=== PATIENT | female | born 1950 | race Caucasian/White ===

== ENCOUNTER 2017-05-08 10:51 | Day surgery (SDC) | payer BC ==
[~2017-05-08 10:51] MED LIST: DIPRIVAN VIAL ONE; DYLOJECT INJ ONE; NARCAN INJ ONE; NEOSTIGMINE INJ ONE; NORCURON INJ 10 MG VIAL ONE; QUELICIN (OR ANECTINE) ONE; ROBINUL ONE; SUPRANE IN ONE; VERSED ONE; XYLOCAINE 2 % (PLAIN) ONE; ZOFRAN INJ 4 MG VIAL ONE
[2017-05-08 10:57] VITALS: BMI 29.2
--- NOTE | 2017-05-08 11:32 | DR.GENAD ---
HPI - PCP Primary Care Physician: TREY - HPI Comment HPI Comment: SUDDEN ONSET OF JAMEL UMBILICAL PAIN RADIATING TO RIGHT SIDE. PAIN IN RLQ OF ABDOMEN WELL. NO FEVER. NAUSEA PRESENT BUT NO VOMITING. - Complaint/Symptoms Chief Complaint Doctors Comments: ABDOMINAL PAIN Chief Complaint:: HURTING FROM MY NAVAL TO MY RIGHT SIDE AND NAUSEA - Nurses notes reviewed Nurses Notes Review: Yes - Source History Provided: Patient - Mode of Arrival Mode of Arrival: Ambulatory - Timing Onset of Chief Complaint: 05/08/17 Came on: Suddenly - Duration Duration: Constant Duration: Days - Severity Severity: Moderate PMH - PMH Past Medical History: Yes Past Medical History: COPD, Hypertension Past Surgical History: Yes Surgical History: Hysterectomy - Family History History of Family Medical Conditions: Yes Family Medical History: Cancer, Hypertension - Social History Does patient currently use any type of tobacco product: No Have you used tobacco products in the last 12 months: No Type of Tobacco Use: None Does any household member use tobacco: No Alcohol Use: None Do you use any recreational Drugs:: No Lives With: Family Lives Where: Home - infectious screening In the last 2 months have you had wt loss of >10#?: NO Have you had fever, night sweats or hemotysis?: No Have you traveled outside the country in the last 6 months?: No Isolation: Standard ROS - Review of Systems Constitutional: No Symptoms Reported. negative: Chills, Diaphoresis, Fever, Weakness, Fatigue, Loss of Appetite Eyes: No Symptoms Reported. negative: Eye Pain, Discharge ENTM: No Symptoms Reported. negative: Ear Pain, Nose Discharge, Nose Congestion , Throat Pain Respiratoy: No Symptoms Reported. negative: Non-Productive Cough, Short of Breath, Wheezing, Hemoptysis Cardiovascular: No Symptoms Reported. negative: Chest Pain Gastrointestinal/Abdominal: Abdominal Pain, Nausea. negative: Constipation, Diarrhea, Vomiting Genitourinary: No Symptoms Reported. negative: Dysuria, Frequency, Hematuria Neurological: No Symptoms Reported Musculoskeletal: No Symptoms Reported Integumentary: No Symptoms Reported Hematologic/Lymphatic: No Symptoms Reported Endocrine: No Symptoms Reported All Other Systems: Reviewed and Negative PE - Vital Signs Vitals: Temperature 98.2 F Pulse Rate 83 Respiratory Rate 20 Blood Pressure 165/87 O2 Sat by Pulse Oximetry 98 - General Limitations: No Limitations General Appearance: Alert - Head Head Exam: Normal Inspection - Eyes Eye exam: Normal Appearance - ENT ENT Exam: Normal External Ear Exam External Ear Exam: Normal External Inspection TM/Canal Exam: Bilateral Normal Nose Exam: Normal Nose Exam Mouth Exam: Normal Inspection Throat Exam: Normal Inspection - Neck Neck Exam: Trachea Midline - Chest Chest Inspection: Symmetric Chest Wall Rise - Respiratory Respiratory Exam: Normal Lung Sounds Bilat Respiratory Exam: Bilateral Clear to Auscultation - Cardiovascular Cardiovascular Exam: Regular Rate, Normal Rhythm, Normal Heart Sounds - Abdominal Exam Abdominal Exam: Normal Bowel Sounds, Soft, Tenderness Abdominal Tenderness: RLQ, Moderate - Extremities Extremities Exam: Normal Inspection - Back Back Exam: Normal Inspection - Neurologic Neurological Exam: Alert, Oriented X3, CN II-XII Intact - Psychiatric Psychiatric Exam: Anxious - Skin Skin Exam: Normal Color MDM - Differential Diagnosis Differential Diagnosis: ABDOMINAL PAIN, APPENDICITIS, BOWEL ONSTRUCTION Course - Treatment Treatment: SEE ORDERS. - Consultation Consultation Comments: DR FLOWERS WILL TAKE PATIENT TO SURGERY. - Education/Counseling Education/Counseling: Patient, Education Educated On: Diagnosis ROR - Labs Reviewed Laboratory Results Reviewed?: Yes Result Diagrams: 05/08/17 11:40 05/08/17 11:40 Laboratory: WBC 13.2 X10^3/uL (3.6-10.0) H 05/08/17 11:40 RBC 4.57 X10^6/uL (3.5-5.4) 05/08/17 11:40 Hgb 13.1 g/dL (12.0-16.0) 05/08/17 11:40 Hct 39.1 % (36.0-47.0) 05/08/17 11:40 MCV 85.6 fL (80.0-100.0) 05/08/17 11:40 MCH 28.6 pg (27.0-34.0) 05/08/17 11:40 MCHC 33.5 g/dL (33.0-35.0) 05/08/17 11:40 RDW 12.8 % (11.6-16.5) 05/08/17 11:40 Plt Count 177 X10^3/uL (150.0-450.0) 05/08/17 11:40 MPV 9.6 fL (7.4-11.0) 05/08/17 11:40 Neut % 88.6 % (42.0-75.0) H 05/08/17 11:40 Lymph % 6.9 % (21.0-51.0) L 05/08/17 11:40 Logan % 4.2 % (0.0-13.0) 05/08/17 11:40 Eos % 0.1 % (0.9-2.9) L 05/08/17 11:40 Baso % 0.2 % (0.2-1.0) 05/08/17 11:40 Neut # 11.6 x10^3/uL (2.2-4.8) H 05/08/17 11:40 Lymph # 0.9 X10^3/uL (1.3-2.9) L 05/08/17 11:40 Logan # 0.6 x10^3/uL (0.3-0.8) 05/08/17 11:40 Eos # 0.0 x10^3/uL (0.0-0.2) 05/08/17 11:40 Baso # 0.0 X10^3/uL (0.0-0.1) 05/08/17 11:40 Absolute Nucleated RBC 0.0 /100WBC 05/08/17 11:40 Sodium 144 mmol/L (136-145) 05/08/17 11:40 Corrected Sodium 145 mmol/L (136-145) 05/08/17 11:40 Potassium 3.5 mmol/L (3.5-5.1) 05/08/17 11:40 Chloride 108 mmol/L (98-107) H 05/08/17 11:40 Carbon Dioxide 28.4 mmol/L (21-32) 05/08/17 11:40 BUN 26 mg/dL (7-18) H 05/08/17 11:40 Creatinine 0.87 mg/dL (0.55-1.02) 05/08/17 11:40 Est GFR (MDRD) Af Amer > 60 (>60) 05/08/17 11:40 Est GFR (MDRD) Non-Af > 60 (>60) 05/08/17 11:40 Glucose 130 mg/dL (65-99) H 05/08/17 11:40 Calcium 8.5 mg/dL (8.5-10.1) 05/08/17 11:40 Corrected Calcium TNP 05/08/17 11:40 Total Bilirubin 0.60 mg/dL (0.2-1.0) 05/08/17 11:40 AST 23 Units/L (15-37) 05/08/17 11:40 ALT 32 Units/L (12-78) 05/08/17 11:40 Alkaline Phosphatase 91 Units/L (46-116) 05/08/17 11:40 Total Protein 7.0 g/dL (6.4-8.2) 05/08/17 11:40 Albumin 3.6 g/dL (3.4-5.0) 05/08/17 11:40 Globulin 3.4 g/dL (2.5-4.5) 05/08/17 11:40 Albumin/Globulin Ratio 1.1 Ratio (1.1-2.1) 05/08/17 11:40 Amylase 98 Units/L (25-115) 05/08/17 11:40 Lipase 95 Units/L (73-393) 05/08/17 11:40 - XRAY XRAY Interpreted by: Radiologist XRAY Findings: REPORT DISCUSS WITH PATIENT. - Diagnosis Discharge Problem: Abdominal pain Qualifiers: Abdominal location: right lower quadrant Qualified Code(s): R10.31 - Right lower quadrant pain Acute appendicitis Qualifiers: Acute appendicitis type: unspecified acute appendicitis type Qualified Code(s) : K35.80 - Unspecified acute appendicitis - Discharge Plan Disposition: ADMITTED INPATIENT Condition: Stable - Follow ups/Referrals Follow ups/Referrals: PEDRITO YANG [Primary Care Provider] - 3 days - Instructions
[2017-05-08 11:49] LABS: BASOPHILS % (AUTO) 0.2 % (0.2-1.0); EOSINOPHILS % (AUTO) 0.1 % (0.9-2.9); HEMATOCRIT 39.1 % (36.0-47.0); HEMOGLOBIN 13.1 g/dL (12.0-16.0); LYMPHOCYTES # (AUTO) 0.9 X10^3/uL (1.3-2.9); LYMPHOCYTES % (AUTO) 6.9 % (21.0-51.0); MEAN CORPUSCULAR HEMOGLOBIN 28.6 pg (27.0-34.0); MEAN CORPUSCULAR HGB CONC 33.5 g/dL (33.0-35.0); MEAN CORPUSCULAR VOLUME 85.6 fL (80.0-100.0); MEAN PLATELET VOLUME 9.6 fL (7.4-11.0); MONOCYTES # (AUTO) 0.6 x10^3/uL (0.3-0.8); MONOCYTES % (AUTO) 4.2 % (0.0-13.0); NEUTROPHILS # (AUTO) 11.6 x10^3/uL (2.2-4.8); NEUTROPHILS % (AUTO) 88.6 % (42.0-75.0); PLATELET COUNT 177 X10^3/uL (150.0-450.0); RED BLOOD COUNT 4.57 X10^6/uL (3.5-5.4); RED CELL DISTRIBUTION WIDTH 12.8 % (11.6-16.5); WHITE BLOOD COUNT 13.2 X10^3/uL (3.6-10.0)
[2017-05-08 12:03] LABS: ALANINE AMINOTRANSFERASE 32 Units/L (12-78); ALBUMIN 3.6 g/dL (3.4-5.0); ALKALINE PHOSPHATASE 91 Units/L (46-116); AMYLASE 98 Units/L (25-115); ASPARTATE AMINO TRANSFERASE 23 Units/L (15-37); BLOOD UREA NITROGEN 26 mg/dL (7-18); CALCIUM 8.5 mg/dL (8.5-10.1); CARBON DIOXIDE 28.4 mmol/L (21-32); CHLORIDE 108 mmol/L (98-107); COR NA(FOR HYPERGLY) 145 mmol/L (136-145); CREATININE 0.87 mg/dL (0.55-1.02); GLUCOSE 130 mg/dL (65-99); LIPASE 95 Units/L (73-393); SODIUM 144 mmol/L (136-145); eGFR BLACK RACES > 60 (>60); eGFR NON BLACK RACES > 60 (>60)
[2017-05-08] MEDS ORDERED: NS 100 ML IV 100 ML IV ONE (13:28)
--- NOTE | 2017-05-08 15:40 | CT ---
CT abdomen and pelvis with contrast Indication: Right lower quadrant pain and tenderness Comparison: None available Technique: Multiple axial images of the abdomen and pelvis were obtained from the lung bases to the pubic symph ysis after the administration of IV contrast. Coronal and sagittal reformatted images were also pro vided. Radiation dose reduction techniques were performed utilizing adjustment for MA/kVP based on patient body size. Findings: The lung bases are clear. The liver, gallbladder, bile ducts, spleen, pancreas and adrenal glands ar e normal. Neither kidney demonstrates evidence of nephrolithiasis, hydronephrosis or mass. Urinary b ladder is normal. Upper GI tract demonstrates a small sliding hiatal hernia. There is thickening of the proximal loops of small bowel without evidence of obstruction. This there is also focal thickening of the ileum seen best on axial image 59. The appendix is adjace nt to the thickened loop of small bowel demonstrating moderate dilatation measuring 10 mm in diamete r with surrounding inflammatory change consistent acute appendicitis. No pelvic or adnexal mass. The rectum and colon are unremarkable aside for scattered diverticula within the distal colon. No pelvi c free fluid or adenopathy. Abdominal aorta is normal in caliber with moderate calcified atheroscler otic disease. Impression: 1.Acute appendicitis without evidence of perforation or abscess formation . No definite mass identif ied; however there is increased risk for underlying cecal or appendiceal malignancy given patient ag e and acute appendicitis. 2. Segmental thickening of loops of proximal and mid small bowel is consistent with an enteritis, in fectious and inflammatory etiologies should be considered. Focal thickening of the distal ileum is suspected be reactive to the above described acute appendicitis given its proximity to the inflammat ory change. 3. Refer to above for incidental findings. Reported By:
[2017-05-08] MEDS ORDERED: LR 1000 ML IV 1,000 ML IV ONE (15:54)
[2017-05-08] MEDS ORDERED: NS 50 ML IV + SPIKE MINIBAG* 100 ML IV ONE (15:54)
[2017-05-08] MEDS ORDERED: XYLOCAINE 1 % (PLAIN) ONE (15:54)
[2017-05-08] MEDS ORDERED: ANCEF VIAL 1 GM ONE (15:54)
[2017-05-08 15:56] LABS: BILIRUBIN,URINE NEGATIVE (NEGATIVE); BLOOD/HEMOGLOBIN,URINE 2+ (NEGATIVE); GLUCOSE, URINE NEGATIVE (NEGATIVE); KETONES,URINE NEGATIVE (NEGATIVE); LEUKOCYTE ESTERASE ,URINE NEGATIVE (NEGATIVE); NITRITES,URINE NEGATIVE (NEGATIVE); PROTEIN,URINE 1+ (NEGATIVE); UROBILINOGEN,URINE NORMAL (NORMAL)
[2017-05-08] MEDS ORDERED: MARCAINE 0.25% WITH EPI IJ ONE (16:08)
[2017-05-08 16:17] LABS: AMORPHOUS SEDIMENT,UR TRACE /HPF (NEGATIVE); APPEARANCE,URINE CLEAR (CLEAR); BACTERIA,URINE TRACE /HPF (NEGATIVE); COLOR,URINE YELLOW (YELLOW); SQUAMOUS EPITHELIAL CELL,UR FEW /HPF (NEGATIVE)
[2017-05-08] MEDS ORDERED: FENTANYL INJ 250 mcg ONE (16:27)
[2017-05-08] MEDS ORDERED: NS IRRIGATION 3000 ML 3,000 ML IR ONE (17:13)
[2017-05-08] MEDS ORDERED: MORPHINE SULFATE INJ 2 MG IVP PRN (17:35)
[2017-05-08] MEDS ORDERED: ZOFRAN INJ 4 MG VIAL IVP PRN ×2 (17:35→17:50)
[2017-05-08] MEDS ORDERED: PERCOCET TAB 5/325 MG PO PRN (17:35)
[2017-05-08] MEDS ORDERED: BENADRYL INJ 50 MG VIAL IVP PRN (17:50)
[2017-05-08] MEDS ORDERED: REGLAN INJ 10 MG VIAL IVP PRN (17:50)
[2017-05-08] MEDS ORDERED: PHENERGAN INJ 25 MG IVP PRN (17:50)
[2017-05-08] MEDS ORDERED: DILAUDID INJ IVP PRN (17:50)
[2017-05-08] MEDS: BACTRIM DS TAB PO SCH ×2 (22:01)
[2017-05-09 05:59] LABS: BASOPHILS % (AUTO) 0.4 % (0.2-1.0); EOSINOPHILS % (AUTO) 0.1 % (0.9-2.9); HEMOGLOBIN 12.2 g/dL (12.0-16.0); LYMPHOCYTES # (AUTO) 2.1 X10^3/uL (1.3-2.9); MEAN CORPUSCULAR HEMOGLOBIN 28.9 pg (27.0-34.0); MEAN CORPUSCULAR HGB CONC 33.8 g/dL (33.0-35.0); MEAN CORPUSCULAR VOLUME 85.3 fL (80.0-100.0); MEAN PLATELET VOLUME 10.2 fL (7.4-11.0); MONOCYTES # (AUTO) 0.7 x10^3/uL (0.3-0.8); NEUTROPHILS # (AUTO) 10.3 x10^3/uL (2.2-4.8); NEUTROPHILS % (AUTO) 78.5 % (42.0-75.0); PLATELET COUNT 163 X10^3/uL (150.0-450.0); RED BLOOD COUNT 4.22 X10^6/uL (3.5-5.4); RED CELL DISTRIBUTION WIDTH 13.1 % (11.6-16.5); WHITE BLOOD COUNT 13.1 X10^3/uL (3.6-10.0)
[2017-05-09 08:05] VITALS: BP 143/63
[2017-05-09] MEDS: BACTRIM DS TAB PO SCH (09:55)
== END 2017-05-09 11:55 | disposition home or self-care (01) ==
LOC: ER 11:02 → SURG1 16:22 → MED/SURG 16:22 → SURG1 05-09 11:55 → MED/SURG 05-09 11:55 → SURG1 05-14 15:10
PROVIDERS: ADMIT Internal Medicine; ATTEND Internal Medicine
PROC: 0DTJ4ZZ Resection of Appendix, Percutaneous Endoscopic Approach (ICD-10-PCS; principal; 2017-05-08 16:15)
DX: K35.89 Other acute appendicitis (principal)
CPT/HCPCS: 36415; 74177; 80053; 81001; 82150; 83690; 85025; 96365; 96374; 99284; A4216; A4222; S0020; G0378; J0330; J0690; J2001; J2250; J2310; J2405; J2710; J3010; J3490; J7120